=== PATIENT | male | born 1950 | race Caucasian/White ===

== ENCOUNTER 2020-04-26 08:56 | Emergency (ER) | payer OTHER ==
[2020-04-26 09:11] VITALS: BP 151/81; PULSE 100
--- NOTE | 2020-04-26 10:00 | EDM.PDOC ---
ED HPI GENERAL MEDICAL PROBLEM - General Chief Complaint: Skin Complaint Stated Complaint: SWOLLEN FACE/ALLERGIC REACTION Time Seen by Provider: 04/26/20 09:12 Source of Information: Reports: Patient History Limitations: Reports: No Limitations - History of Present Illness INITIAL COMMENTS - FREE TEXT/NARRATIVE: Mr. Bradley is a pleasant 70-year-old gentleman who now presents to the ED with a concern about continued left ear infection along with facial swelling. He states that his symptoms began this past , 04/23/2020, however, he brought along with him paperwork from the [facility] and an ENT at [facility]. Unfortunately, the patient literally shuffled all of the papers, therefore sorting them all out took some time, but it appears that the patient originally developed a left ear infection some time prior to , 04/09/2020. He was seen at the [facility] on 04/09/2020, where he was noted to have left ear swelling and a small pustule. The ear was cleaned, antibiotic ointment applied, and the patient was discharged with the recommendation that he continue that at home. He then followed up at the [facility] on 04/14/2020, where it was noted that he had increased swelling and pain. He reported that he had drainage of a thick fluid. He was diagnosed with cellulitis and prescribed Bactrim DS BID x 10 days. He then returned to the [facility] on 04/17/2020, where he reported having a decreased amount of drainage, although he still complained of pain. He had not had any fever, chills, or nausea. An I&D was performed, recovering a sizable amount of pus. A culture was sent. The antibiotics were continued. Culture results from the I&D resulted on 04/19/2020, indicating gram- positive cocci in clusters, triplets, pairs, and chains. The patient was then seen by a nurse at the [facility] on 04/20/2020, where his ear was noted to be swollen and draining clear fluid. He still had not had a fever, chills, nausea, or vomiting, although he continued to complain of pain. It appears that the patient was referred to an ENT at [facility]. The patient was then seen by an ENT at [facility] that same day, on 04/20/2020. He was diagnosed with perichondritis and prescribed a prednisone taper over 10 days. The patient then followed up with the same ENT in [place] on , 04/23/2020, where his diagnosis remained unchanged, but he was prescribed Bactrim DS. The patient has an appointment to follow-up with the same ENT, however, here in [place], tomorrow, 04/27/2020 at 12:45 PM. The patient states that he is concerned that his left ear infection has not improved, and that his facial swelling is increasing. At present, the patient denies having any pain or pruritus to the ear. His initial BP is found to be modestly elevated at 151/81, otherwise, he is hemodynamically stable, afebrile, saturating 92% on room air. The patient's PCP is Dr. April Coffey, at the [facility]. His Animal Treatment Investigator is Dr. Cathy Horvath, at [facility]. - Related Data Allergies Allergy/AdvReac Type Severity Reaction Status Date / Time cephalexin monohydrate Allergy Severe Hives and Verified 04/26/20 09:11 [From Keflex] Rash Home Meds: Home Meds Acetaminophen 650 mg PO Q6H PRN 03/16/15 [History] Brimonidine Tartrate [Brimonidine Tartrate 0.2% Ophth Soln] 1 drop EYERT BID 03/16/15 [History] Cholecalciferol (Vitamin D3) [Vitamin D3] 2,000 units PO DAILY 03/16/15 [History] Cyanocobalamin (Vitamin B-12) [B-12] 500 mcg PO DAILY 03/16/15 [History] Metoprolol Tartrate 100 mg PO BID 03/16/15 [History] Simvastatin [Zocor] 20 mg PO BEDTIME 03/16/15 [History] amLODIPine [Norvasc] 10 mg PO DAILY 03/16/15 [History] hydroCHLOROthiazide [Hydrochlorothiazide] 50 mg PO DAILY 03/16/15 [History] metFORMIN [Glucophage XR] 500 mg PO BIDMEALS 03/16/15 [History] Aspirin [Adult Aspirin] 81 mg PO DAILY 04/20/18 [History] Clopidogrel [Plavix] 75 mg PO DAILY 04/20/18 [History] Finasteride [Proscar] 5 mg PO DAILY 04/20/18 [History] Losartan [Cozaar] 25 mg PO DAILY 04/20/18 [History] Temazepam [Restoril] 30 mg PO BEDTIME PRN 04/20/18 [History] Timolol Hemihydrate [Betimol 0.5% Ophth Soln] 1 drop EYERT BID 04/20/18 [History] Past Medical History HEENT History: Reports: Glaucoma, Hard of Hearing, Impaired Vision (blind right eye) Cardiovascular History: Reports: Arrhythmia (paroxysmal ventricular tachycardia), High Cholesterol, Hypertension, PVD, Other (See Below) (Right carotid artery stenosis) Gastrointestinal History: Reports: Colon Polyp Genitourinary History: Reports: BPH Musculoskeletal History: Reports: Osteoarthritis Psychiatric History: Reports: Other (See Below) (Chronic pain. Insomnia.) Endocrine/Metabolic History: Reports: Diabetes, Type II, Obesity/BMI 30+, Vitamin D Deficiency Immunologic History: Reports: Other (See Below) (Monoclonal gammopathy) - Infectious Disease History Infectious Disease History: Reports: None - Past Surgical History Cardiovascular Surgical History: Reports: Carotid Endarterectomy (right), Vascular Surgery (aortibifemoral bypass) GI Surgical History: Reports: Colonoscopy Male Surgical History: Reports: TURP-Transurethral Resection of Prostate Musculoskeletal Surgical History: Reports: Other (See Below) Other Musculoskeletal Surgeries/Procedures:: Right Tibia Surgery Social & Family History - Tobacco Use Tobacco Use Status *Q: Current Every Day Tobacco User Years of Tobacco use: 50 Packs/Tins Daily: 1 - Caffeine Use Caffeine Use: Reports: None - Recreational Drug Use Recreational Drug Use: No ED ROS GENERAL - Review of Systems Review Of Systems: Comprehensive ROS is negative, except as noted in HPI. ED EXAM, SKIN/RASH Exam: See Below Exam Limited By: No Limitations General Appearance: Alert, WD/WN, No Apparent Distress Eye Exam: Bilateral Eye: EOMI, Normal Inspection Ears: Other (swelling and purplish ecchymosis to the left external ear. There is a dry/scabbed area to the superior pinna, likely the site of the previous abscess/I&D) Nose: Normal Inspection Throat/Mouth: Normal Inspection, Normal Lips, Normal Voice, No Airway Compromise Head: Atraumatic, Facial Swelling (Generalized, most noticeable around the eyes) Neck: Normal Inspection, Supple, Non-Tender, Full Range of Motion. No: Lymphadenopathy (L), Lymphadenopathy (R) Course - Vital Signs Last Recorded V/S: Last Vital Signs Temp 35.9 C L 04/26/20 09:07 Pulse 100 04/26/20 09:07 Resp 18 04/26/20 09:07 BP 151/81 H 04/26/20 09:07 Pulse Ox 92 L 04/26/20 09:07 - Re-Assessments/Exams Free Text/Narrative Re-Assessment/Exam: 04/26/20 09:55 As above, the patient developed an ear infection some time before 04/09/2020, then was seen [facility] on 4 occasions, followed by an ENT at [facility] on 2 occasions, with an appointment to see the same ENT here in [place] tomorrow. He states that he is concerned that his left ear infection has not improved, with the addition of increased facial swelling. He is currently on Bactrim, Augmentin, and prednisone (not sure where the Augmentin came into the picture, but he is apparently on it - perhaps he was seen in addition to the visits that he brought documentation of). I do not think it would be in the patient's best interest for me to step in as an additional provider and try to second-guess the ENT. I think it would be in the patient's best interest to have him follow-up with the ENT at tomorrow's scheduled appointment. The patient expressed understanding of my rationale. 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 On review of your paperwork, however, it appears that you developed a left ear infection before , 04/09/2020, and have since been seen on 4 occasions at the [facility], and on 2 occasions by ENT in [place]. You are currently being treated with 2 antibiotics and prednisone. Since you are already receiving excellent care, we do not feel it is in your best interest to now step in and complicate matters. We recommend that you continue your current treatment as prescribed. We recommend that you keep your appointment with your ENT Dr. Horvath at your previously scheduled appointment tomorrow, 04/27/2020, at 12:45 PM. If any other problems, please do not hesitate to return to the ER. Sepsis Event Note (ED) - Evaluation Sepsis Screening Result: No Definite Risk
== END 2020-04-26 10:40 | disposition home or self-care (01) ==
LOC: JD.ED 08:56
DX: H61.002 Unspecified perichondritis of left external ear (principal); E11.51 Type 2 diabetes mellitus with diabetic peripheral angiopathy without gangrene; E66.9 Obesity, unspecified; F17.210 Nicotine dependence, cigarettes, uncomplicated; Z88.1 Allergy status to other antibiotic agents; Z79.82 Long term (current) use of aspirin; Z79.84 Long term (current) use of oral hypoglycemic drugs; Z79.02 Long term (current) use of antithrombotics/antiplatelets; Z79.899 Other long term (current) drug therapy
CPT/HCPCS: 99282; 99283

== ENCOUNTER 2021-08-04 08:48 | Emergency (ER) | payer OTHER ==
[2021-08-04] MEDS ORDERED: Diphtheria,Pertussis(Acell),Tetanus Vaccine 0.5 ML Syringe IM ONE (09:38)
[2021-08-04 12:07] VITALS: BP 128/84; PULSE 75
== END 2021-08-04 12:03 | disposition home or self-care (01) ==
LOC: JD.ED 08:48
DX: S50.812A Abrasion of left forearm, initial encounter (principal); L03.114 Cellulitis of left upper limb; E78.00 Pure hypercholesterolemia, unspecified; I10 Essential (primary) hypertension; N40.0 Benign prostatic hyperplasia without lower urinary tract symptoms; Z88.1 Allergy status to other antibiotic agents; Z79.82 Long term (current) use of aspirin; Z79.02 Long term (current) use of antithrombotics/antiplatelets; Z79.899 Other long term (current) drug therapy; Z72.0 Tobacco use; Z23 Encounter for immunization; W00.9XXA Unspecified fall due to ice and snow, initial encounter
CPT/HCPCS: 36415; 73090-26-LT; 73090-LT; 80053; 85025; 86140; 90471; 90715; 99283-25